=== PATIENT | female | born 1985 | race Caucasian/White ===

== ENCOUNTER 2017-10-06 23:37 | Emergency (ER) | payer MEDICAID ==
[~2017-10-06] VITALS: Ht 162.6 cm; Wt 54.3 kg
[2017-10-07] MEDS ORDERED: tamsulosin 0.4mg capsule PO ONE (00:10)
[2017-10-07] MEDS ORDERED: ketorolac trometh. 30mg/ml inj. IV ONE (00:10)
[2017-10-07] MEDS ORDERED: morphine 2 MG/ML inj. syringe IV ONE (00:10)
[2017-10-07] MEDS ORDERED: ondansetron/PF 4mg/2ml inj IV ONE (00:10)
[2017-10-07] MEDS ORDERED: normal saline 1000ML IV soln IVB ONE (00:10)
[2017-10-07 00:32] LABS: BASOPHILS % (AUTO) 0.3 % (0-1); EOSINOPHILS # (AUTO) 0.6 X10'3 (0-0.9); EOSINOPHILS % (AUTO) 5.4 % (0-6); HEMATOCRIT 42.5 % (35.0-45.0); HEMOGLOBIN 14.6 g/dl (12.0-16.0); LYMPHOCYTES # (AUTO) 1.1 X10'3 (1.1-4.8); LYMPHOCYTES % (AUTO) 9.6 % (21-51); MEAN CORPUSCULAR HEMOGLOBIN 28.9 PG (27.0-31.0); MEAN CORPUSCULAR HGB CONC 34.3 % (33.0-36.5); MEAN CORPUSCULAR VOLUME 84.2 FL (78-98); MEAN PLATELET VOLUME 9.6 FL (7.4-10.4); MONOCYTES # (AUTO) 0.6 X10'3 (0-0.9); MONOCYTES % (AUTO) 4.8 % (2-12); NEUTROPHILS # (AUTO) 9.3 X10'3 (1.8-7.7); NEUTROPHILS % (AUTO) 79.9 % (42-75); PLATELET COUNT 167 X10'3 (140-440); RED BLOOD COUNT 5.05 X10'6 (4.20-5.60); RED CELL DISTRIBUTION WIDTH 13.8 % (11.5-14.5); WHITE BLOOD COUNT 11.7 X10'3 (4.5-11.0)
[2017-10-07 00:47] LABS: ALANINE AMINOTRANSFERASE 37 U/L (12-78); ALBUMIN 4.4 G/DL (3.4-5.0); ALBUMIN/GLOBULIN RATIO 1.4 (1.1-1.5); ALKALINE PHOSPHATASE 41 IU/L (46-116); ANION GAP 11 (8-16); ASPARTATE AMINO TRANSFERASE 25 U/L (10-37); BILIRUBIN,TOTAL 0.5 MG/DL (0.1-1.0); BLOOD UREA NITROGEN 21 MG/DL (7-18); BUN/CREATININE RATIO 16.9 (6.6-38.0); CALCIUM 9.4 MG/DL (8.5-10.1); CHLORIDE 103 MMOL/L (99-107); CREATININE 1.24 MG/DL (0.40-0.90); GLUCOSE 135 MG/DL (70-104); LIPASE 90 U/L (73-393); SODIUM 141 MMOL/L (135-145); TOTAL CARBON DIOXIDE 27.4 MMOL/L (24-32); TOTAL PROTEIN 7.6 G/DL (6.4-8.2); eGFR 51 ML/MIN
[2017-10-07 00:48] LABS: HCG SERUM QL NEGATIVE
[2017-10-07 00:52] LABS: CLARITY,URINE CLEAR (Clear); COLOR,URINE YELLOW (Yellow); GLUCOSE, URINE NEGATIVE (Neg); KETONES,URINE NEGATIVE (Neg); LEUKOCYTE ESTERASE ,URINE TRACE (Neg); NITRITES, URINE NEGATIVE (Neg); OCCULT BLOOD,URINE MODERATE (Neg); PH,URINE 5.5 (4.8-8.0); PROTEIN,URINE NEGATIVE (Neg); UROBILINOGEN,URINE 0.2 E.U/dL (0.2-1.0)
[2017-10-07 00:58] LABS: UA COLLECTION TYPE CLN CATCH MIDSTREAM
[2017-10-07 01:17] LABS: BACTERIA,URINE FEW /HPF (Neg); MUCUS STRANDS MANY /LPF (Neg); SQUAMOUS EPITHELIAL CELL,UR MANY /LPF (FEW); WBC,URINE 0-4 /HPF (0-4)
[2017-10-07] MEDS ORDERED: HYDR-3965 PO (02:03)
[2017-10-07] MEDS ORDERED: IBUP-1984 PO (02:03)
[2017-10-07] MEDS ORDERED: HYDROcodone/acetaminophen 10/325mg tab PO ONE (02:05)
[2017-10-07 02:27] VITALS: BP 120/60
== END 2017-10-07 02:28 | disposition home or self-care (01) ==
LOC: ER 23:39
DX: N13.2 Hydronephrosis with renal and ureteral calculous obstruction (principal); N23 Unspecified renal colic; Z79.899 Other long term (current) drug therapy
CPT/HCPCS: 36415; 74176; 80053; 81001; 83690; 84703; 85025; 96361; 96374; 96375; 99285; J1885; J2270; J2405; J7030

== ENCOUNTER 2018-10-07 11:05 | Emergency (ER) | payer MEDICAID, OTHER ==
[~2018-10-07] VITALS: Ht 160 cm; Wt 53.0 kg
[2018-10-07] MEDS ORDERED: ipratropium/albuterol 3ml nebule NEB ONE (11:30)
[2018-10-07] MEDS ORDERED: methylPREDNISolone sod succ 125mg/2ml vial IV ONE (11:30)
[2018-10-07] MEDS ORDERED: METH4TAB81 PO (11:32)
[2018-10-07] MEDS ORDERED: CefTRIAXone 1000mg IM Kit (w/lidocaine diluent) IM ONE (11:55)
[2018-10-07] MEDS ORDERED: AMOX-580 PO (12:13)
[2018-10-07] MEDS ORDERED: albuterol 2.5 MG/3 ML nebule NEB ONE (12:15)
[2018-10-07] MEDS ORDERED: CefTRIAXone/D5W-Rocephin 1gm 50 ML IV ONE (13:20)
[2018-10-07 14:01] VITALS: BP 97/64
== END 2018-10-07 14:10 | disposition home or self-care (01) ==
LOC: ER 11:05
DX: J20.9 Acute bronchitis, unspecified (principal); F17.210 Nicotine dependence, cigarettes, uncomplicated
CPT/HCPCS: 71046; 93005; 94640; 94760; 96365; 96375; 99284; J0696; J2930

== ENCOUNTER 2022-05-17 08:42 | Emergency (ER) | payer SELFPAY ==
[~2022-05-17] VITALS: Ht 162.6 cm; Wt 62.0 kg
[~2022-05-17 08:42] MED LIST: METH4TAB81 PO
[2022-05-17 08:45] VITALS: BP 115/78
[2022-05-17] MEDS ORDERED: AMOX500C2 PO (09:40)
[2022-05-17] MEDS ORDERED: HYDR-3972 PO (09:40)
== END 2022-05-17 09:55 | disposition home or self-care (01) ==
LOC: ER 08:43
DX: K08.89 Other specified disorders of teeth and supporting structures (principal)
CPT/HCPCS: 99283